=== PATIENT | female | born 1940 | race Hispanic/Latino ===

== ENCOUNTER 2018-06-08 13:24 | Inpatient (IN) | payer OTHER, MEDICARE ==
[~2018-06-08 13:24] MED LIST: ATOR20TA65 PO; CARV25TA PO; CELE100 PO; FURO-152 PO; GABA-531 PO; LEVO500T2 PO; LORA1TAB3 PO; LOSA25TA41 PO; MECL-111 PO; METF-444 PO; OMEP20CA10 PO; SERT100T12 PO
[2018-06-08] MEDS ORDERED: ONDANSETRON HCL 4 MG/2 ML VIAL ONE ×2 (13:35→22:59)
[2018-06-08 13:38] LABS: APPEARANCE,URINE Clear (CLEAR); BILIRUBIN,URINE Negative (NEGATIVE); COLOR,URINE Yellow (YELLOW); GLUCOSE, URINE (UA) Negative (NEGATIVE); KETONES,URINE Negative (NEGATIVE); LEUKOCYTE ESTERASE ,URINE Trace (NEGATIVE); NITRATE,URINE Negative (NEGATIVE); OCCULT BLOOD,URINE Negative (NEGATIVE); PROTEIN,URINE Negative (NEGATIVE); UROBILINOGEN,URINE 0.2 mg/dL (0.2-1.0)
[2018-06-08 14:05] LABS: BACTERIA,URINE Rare /HPF (None Seen); RBC,URINE 0-1 /HPF (0-1)
[2018-06-08 14:06] LABS: WBC,URINE 0-1 /HPF (0-1)
[2018-06-08 14:07] LABS: BASOPHILS % (AUTO) 0.1 % (0.0-5.0); EOSINOPHILS % (AUTO) 1.2 % (0.0-8.0); HEMATOCRIT 34.9 % (36-48); LYMPHOCYTES % (AUTO) 5.5 % (21.0-51.0); MEAN CORPUSCULAR HEMOGLOBIN 32.6 pg (27.0-33.0); MEAN CORPUSCULAR HGB CONC 34.1 g/dL (32.0-36.0); MEAN CORPUSCULAR VOLUME 95.6 fL (79-99); MONOCYTES % (AUTO) 4.2 % (3.0-13.0); PLATELET COUNT (AUTO) 172 K/uL (130-400); RED BLOOD CELL COUNT(AUTO) 3.65 MIL/uL (4.00-5.50); RED CELL DISTRIBUTION WIDTH 15.6 % (11.0-15.5); WHITE BLOOD COUNT (AUTO) 5.8 K/uL (4.8-10.8)
[2018-06-08 14:15] LABS: CREATININE 0.7 mg/dL (0.5-1.5); POTASSIUM 3.3 mmol/L (3.5-5.1)
[2018-06-08 14:19] LABS: ALBUMIN 3.8 g/dL (3.5-5.0); BILIRUBIN,TOTAL 0.9 mg/dL (0.2-1.0); TOTAL PROTEIN, SERUM 8.2 g/dL (6.0-8.3)
[2018-06-08] MEDS ORDERED: DIPHENOXYLATE HCL/ATROPINE 2.5/0.025 MG TAB PO ONE (15:29)
[2018-06-08] MEDS ORDERED: METRONIDAZOLE 500MG/100ML BAG 100 ML ONE (16:57)
[2018-06-08 18:22] LABS: OCCULT BLOOD STOOL SINGLE ONLY POSITIVE (NEGATIVE)
[2018-06-08] MEDS ORDERED: DICYCLOMINE HCL 20 MG TAB ONE (18:39)
[2018-06-08] MEDS: SODIUM CHLORIDE 0.9% 1000ML 1,000 ML IV SCH (18:40)
[2018-06-08] MEDS ORDERED: ACETAMINOPHEN 325 MG TAB PO PRN (18:45)
[2018-06-08] MEDS ORDERED: HYDRALAZINE HCL 20 MG/ML VIAL IV PRN (18:45)
[2018-06-08] MEDS ORDERED: VANCOMYCIN 1GM+NS 250ML 250 ML IV SCH (18:45)
[2018-06-08] MEDS ORDERED: METRONIDAZOLE 500 MG TABLET PO SCH (21:00)
[2018-06-08] MEDS ORDERED: ENOXAPARIN SODIUM 30 MG/0.3 ML SQ SCH (21:00)
[2018-06-08] MEDS ORDERED: POTASSIUM CHLORIDE 20 MEQ ERTAB PO ONE (22:37)
[2018-06-08] MEDS ORDERED: VANCOMYCIN 1GM+NS 250ML 250 ML IV ONE (22:38)
[2018-06-08] MEDS ORDERED: METOPROLOL TARTRATE 25 MG TAB ONE (22:39)
[2018-06-08] MEDS ORDERED: ACETAMINOPHEN EXTRA STRENGTH 500 MG TABLET ONE (23:01)
[2018-06-08 23:40] VITALS: BP 121/77
--- NOTE | 2018-06-08 23:45 | NUR ---
ADMIT PATIENT PATIENT ARRIVED TO FLOOR AT 2345 FROM ED. PATIENT AWAKE, FORGETFUL. PATIENT ON 2 L NC, TOLERATING WELL. IV FLUIDS INFUSING. ID BRACELET UPDATED, APPLIED YELLOW FALL BAND. NON-SKID SOCKS ON, BILAT SCDS. PATIENT MEDICATIONS AT BEDSIDE, RECONCILED MEDS. PATIENT BELONGINGS IN CLOSET. CALL LIGHT/PHONE WITHIN REACH. BED LOCKED, IN LOWEST POSITION. REINFORCED SAFETY INSTRUCTIONS TO CALL FOR ASSISTANCE WHEN GETTING OUT OF BED- PATIENT VERBALIZES AGREEMENT.
[2018-06-09] MEDS ORDERED: GABA-529 PO (00:41)
[2018-06-09] MEDS ORDERED: APIX5TAB PO (00:41)
[2018-06-09] MEDS ORDERED: ATOR20TA65 PO (00:41)
[2018-06-09] MEDS ORDERED: CALC-910 PO (00:41)
[2018-06-09] MEDS ORDERED: CARV12.511 PO (00:41)
[2018-06-09] MEDS ORDERED: SERT100T12 PO (00:41)
[2018-06-09] MEDS ORDERED: PANT40TA25 PO (00:41)
[2018-06-09] MEDS ORDERED: LOSA1TAB37 PO (00:41)
[2018-06-09] MEDS ORDERED: TRAM50TA4 PO (00:41)
[2018-06-09] MEDS ORDERED: SENN-107 PO (00:41)
[2018-06-09] MEDS ORDERED: TORS20TA4 PO (00:41)
[2018-06-09] MEDS ORDERED: IRON 65MG PO (00:41)
[2018-06-09] MEDS ORDERED: DEXTROSE 50%-WATER 50 ML DISP.SYRIN IV PRN (01:00)
[2018-06-09] MEDS ORDERED: POTASSIUM CHLORIDE 10% ELIXIR 20 MEQ/15 ML UDCUP PO PRN (01:00)
[2018-06-09] MEDS ORDERED: GLUCAGON 1MG KIT 1 MG ML IM PRN (01:00)
[2018-06-09] MEDS: FAMOTIDINE/PF 20 MG/2 ML VIAL IV SCH ×3 (01:18→21:55)
[2018-06-09] MEDS: LORAZEPAM 2 MG/ML 1 ML VIAL IVP PRN (01:19)
[2018-06-09] MEDS: POTASSIUM CHLORIDE 20 MEQ ERTAB PO PRN ×8 (03:17→21:56)
--- NOTE | 2018-06-09 03:17 | NUR ---
[facility] CONTINUED POTASSIUM COVERAGE PO FOR KCL=3.3. PT TOLERATED MED WELL. KEPT COMFORTABLE IN BED. CALL LIGHT WITHIN REACH. WILL MONITOR PT.
[2018-06-09 04:00] VITALS: BP 115/59
[2018-06-09] MEDS ORDERED: SENNOSIDES PO PRN (04:15)
[2018-06-09] MEDS ORDERED: DOCUSATE SODIUM PO PRN (04:15)
[2018-06-09] MEDS: SODIUM CHLORIDE 0.9% 1000ML 1,000 ML IV SCH (04:40)
--- NOTE | 2018-06-09 05:00 | NUR ---
RE-CHECK POTASSIUM LEVEL RE-CHECK = 2.8. STARTED IV AND PO POTASSIUM PER PROTOCOL. PT STILL HAVING LOOSE STOOLS. KEPT ON CONTACT ISOLATION. ENCOURAGED TO INCREASE PO INTAKE. FOR MORE CARE.
[2018-06-09] MEDS: LIDOCAINE HCL-MPF 1% 2ML VIAL IVP PRN ×2 (05:02→07:17)
[2018-06-09] MEDS: POTASSIUM CHLORIDE 20MEQ/100ML 100 ML IV PRN ×2 (05:03→07:16)
[2018-06-09] MEDS: INSULIN HUMULIN R 100 UNIT/ML 3ML SQ SCH ×4 (06:18→21:00)
[2018-06-09] MEDS ORDERED: PHARMACY COMMUNICATION MISC SCH (06:30)
--- NOTE | 2018-06-09 06:45 | NUR ---
APPRENTICE INSTRUMENT TECHNICIAN NISHA, APPRENTICE INSTRUMENT TECHNICIAN FOR HOSPITALIST, IN TO MAKE ROUNDS. UPDATED ON PT'S CONDITION. NEW ORDERS GIVEN, PLEASE REFER TO CPOE.
[2018-06-09] MEDS ORDERED: COMPOUND PO MISCELLANEOUS 1 EACH MISC MISC PRN (07:30)
[2018-06-09 08:00] VITALS: BP 119/56
[2018-06-09] MEDS ORDERED: LEVOFLOXACIN 500 MG/D5W 100 ML 100 ML IV SCH (09:00)
[2018-06-09] MEDS ORDERED: GADODIAMIDE 10 MMOL/20 ML VIAL IV ONE (10:31)
--- NOTE | 2018-06-09 11:04 | NUR ---
DCP CM met with pt discussed dc plans. Pt is semi-independent, lives at home with emelia Hawkins. Has a walker, cane, shower chair, Oxygen equipments, provider 4hrs/day w/[facility]. Denies any other equipments/services. Pt feels safe to go back home, emelia able to assist with transportation and needs. DC plan to home once stable. CM to cont to follow up. Addendum: 06/09/18 at 1105 by RENAE BALES LVN CM Amended: Links added.
[2018-06-09 11:27] LABS: % IRON SATURATION 18.1 % (22-44)
[2018-06-09] MEDS: APIXABAN 5 MG TABLET PO SCH ×2 (11:38→21:57)
[2018-06-09] MEDS: SERTRALINE HCL 50 MG TABLET PO SCH (11:39)
[2018-06-09] MEDS: CARVEDILOL 12.5 MG TABLET PO SCH ×2 (11:39→21:58)
[2018-06-09] MEDS: FERROUS SULFATE 325 MG TABLET.DR PO SCH ×2 (11:40→16:59)
[2018-06-09] MEDS: LOSARTAN/HYDROCHLOROTHIAZIDE 50-12.5MG TABLET PO SCH (11:40)
[2018-06-09] MEDS: TORSEMIDE 20 MG TAB PO SCH (11:41)
[2018-06-09] MEDS: VANCOMYCIN HCL 250MG=5ML PO SCH ×6 (11:55→17:02)
[2018-06-09 12:00] VITALS: BP 135/73
[2018-06-09] MEDS: POTASSIUM CHLORIDE 40 MEQ in SODIUM CHLORIDE 0.9% 1000ML 1,000 ML IV SCH ×3 (12:01→23:57)
[2018-06-09] MEDS ORDERED: METRONIDAZOLE 500MG/100ML BAG 100 ML IV SCH (14:00)
[2018-06-09] MEDS ORDERED: LOPERAMIDE HCL 1 MG/5 ML UNIT DOSE CUP PO SCH (15:40)
[2018-06-09 16:00] VITALS: BP 129/78
[2018-06-09 20:00] VITALS: BP 132/70
[2018-06-09] MEDS: MAGNESIUM 2GM PREMIX 50ML 50 ML IV PRN (21:55)
[2018-06-09] MEDS: ATORVASTATIN CALCIUM 20 MG TABLET PO SCH (21:56)
[2018-06-09] MEDS: GABAPENTIN 100 MG CAPSULE PO SCH (21:57)
[2018-06-09 23:44] VITALS: BP 128/68
[2018-06-10] MEDS: VANCOMYCIN HCL 250MG=5ML PO SCH ×6 (00:01→11:48)
[2018-06-10 04:00] VITALS: BP 133/75
[2018-06-10 04:42] LABS: HEMATOCRIT 32.4 % (36-48); MEAN CORPUSCULAR HEMOGLOBIN 32.7 pg (27.0-33.0); MEAN CORPUSCULAR HGB CONC 33.9 g/dL (32.0-36.0); MEAN CORPUSCULAR VOLUME 96.4 fL (79-99); NUCLEATED RED BLOOD CELLS 0.2 % (0.0-0.19); PLATELET COUNT (AUTO) 147 K/uL (130-400); RED BLOOD CELL COUNT(AUTO) 3.36 MIL/uL (4.00-5.50); RED CELL DISTRIBUTION WIDTH 16.4 % (11.0-15.5); WHITE BLOOD COUNT (AUTO) 3.3 K/uL (4.8-10.8)
[2018-06-10 04:55] LABS: CREATININE 0.7 mg/dL (0.5-1.5); POTASSIUM 4.4 mmol/L (3.5-5.1)
[2018-06-10] MEDS: INSULIN HUMULIN R 100 UNIT/ML 3ML SQ SCH ×4 (07:01→21:00)
[2018-06-10 08:00] VITALS: BP 128/69
[2018-06-10] MEDS ORDERED: LOPERAMIDE HCL 2 MG CAP PO SCH ×2 (08:00→18:05)
[2018-06-10] MEDS: ONDANSETRON HCL 4 MG/2 ML VIAL IV PRN (08:21)
[2018-06-10] MEDS: CARVEDILOL 12.5 MG TABLET PO SCH ×2 (09:00→21:21)
[2018-06-10] MEDS: DICYCLOMINE HCL 20 MG TAB PO PRN (11:25)
[2018-06-10] MEDS: TRAMADOL HCL 50 MG TABLET PO PRN (11:25)
[2018-06-10] MEDS: SERTRALINE HCL 50 MG TABLET PO SCH (11:27)
[2018-06-10] MEDS: LOSARTAN/HYDROCHLOROTHIAZIDE 50-12.5MG TABLET PO SCH (11:27)
[2018-06-10] MEDS: LACTOBACILLUS RHAMNOSUS GG 1 EACH CAP.SPRINK PO SCH ×3 (11:27→17:05)
[2018-06-10] MEDS: FERROUS SULFATE 325 MG TABLET.DR PO SCH ×2 (11:28→17:05)
[2018-06-10] MEDS: APIXABAN 5 MG TABLET PO SCH ×2 (11:28→21:14)
[2018-06-10] MEDS: FAMOTIDINE/PF 20 MG/2 ML VIAL IV SCH ×2 (11:29→21:14)
[2018-06-10] MEDS: TORSEMIDE 20 MG TAB PO SCH (11:29)
[2018-06-10 12:00] VITALS: BP 143/90
--- NOTE | 2018-06-10 15:21 | NUR ---
CM Note: [facility] pending ins auth and acceptance CM met with pt discussed MD recommendations, agreeable to go to [facility], HENRIQUE signed. Faxed order, clinicals, pasrr to [facility]. Spoke to Khushboo, will come eval pt. Pt pending ins auth and acceptance. Primary nurse aware. CM to cont to follow up.
[2018-06-10 16:00] VITALS: BP 147/90
--- NOTE | 2018-06-10 16:00 | NUR ---
DR. FRANCOIS AWARE OF STOOL CX POSITIVE ONLY FOR ROTAVIRUS ORDERS ENTERED.
[2018-06-10] MEDS ORDERED: LEVOFLOXACIN 500 MG TABLET ONE (16:47)
[2018-06-10] MEDS ORDERED: LOPERAMIDE HCL 2 MG CAP PO ONE (16:47)
[2018-06-10] MEDS: SODIUM CHLORIDE 0.9% 1000ML 1,000 ML IV SCH (17:07)
[2018-06-10] MEDS ORDERED: LEVOFLOXACIN 750 MG TABLET PO SCH (18:05)
[2018-06-10 20:00] VITALS: BP 140/59
[2018-06-10] MEDS: ATORVASTATIN CALCIUM 20 MG TABLET PO SCH (21:14)
[2018-06-10] MEDS: GABAPENTIN 100 MG CAPSULE PO SCH (21:14)
[2018-06-10 21:22] VITALS: BP 130/59
[2018-06-11] VITALS: BP 132/63
[2018-06-11 04:00] VITALS: BP 123/66
[2018-06-11] MEDS: SODIUM CHLORIDE 0.9% 1000ML 1,000 ML IV SCH ×2 (04:15→18:32)
[2018-06-11 05:45] LABS: CREATININE 0.7 mg/dL (0.5-1.5); POTASSIUM 3.2 mmol/L (3.5-5.1)
[2018-06-11 05:49] LABS: HEMATOCRIT 33.5 % (36-48); MEAN CORPUSCULAR HEMOGLOBIN 31.4 pg (27.0-33.0); MEAN CORPUSCULAR VOLUME 95.3 fL (79-99); PLATELET COUNT (AUTO) 165 K/uL (130-400); RED BLOOD CELL COUNT(AUTO) 3.52 MIL/uL (4.00-5.50); RED CELL DISTRIBUTION WIDTH 16.2 % (11.0-15.5); WHITE BLOOD COUNT (AUTO) 4.7 K/uL (4.8-10.8)
[2018-06-11] MEDS: INSULIN HUMULIN R 100 UNIT/ML 3ML SQ SCH ×4 (06:58→21:00)
[2018-06-11 07:30] VITALS: BP 149/94
[2018-06-11] MEDS: LACTOBACILLUS RHAMNOSUS GG 1 EACH CAP.SPRINK PO SCH ×3 (09:00→19:56)
[2018-06-11] MEDS: SERTRALINE HCL 50 MG TABLET PO SCH (09:01)
[2018-06-11] MEDS: APIXABAN 5 MG TABLET PO SCH ×2 (09:02→22:29)
[2018-06-11] MEDS: FERROUS SULFATE 325 MG TABLET.DR PO SCH ×2 (09:02→19:56)
[2018-06-11] MEDS: TORSEMIDE 20 MG TAB PO SCH (09:02)
[2018-06-11] MEDS: CARVEDILOL 12.5 MG TABLET PO SCH ×2 (09:02→22:29)
[2018-06-11] MEDS: LOSARTAN/HYDROCHLOROTHIAZIDE 50-12.5MG TABLET PO SCH (09:03)
[2018-06-11] MEDS: ONDANSETRON HCL 4 MG/2 ML VIAL IV PRN (09:03)
[2018-06-11] MEDS: FAMOTIDINE/PF 20 MG/2 ML VIAL IV SCH ×2 (09:03→22:28)
[2018-06-11] MEDS: DICYCLOMINE HCL 20 MG TAB PO PRN (09:08)
[2018-06-11 11:00] VITALS: BP 111/54
--- NOTE | 2018-06-11 11:01 | NUR ---
activity: AMB IN HALLWAY WITH PT PERSONNEL "[place]".
[2018-06-11] MEDS: POTASSIUM CHLORIDE 20 MEQ ERTAB PO PRN ×3 (11:12→22:31)
[2018-06-11] MEDS: LORAZEPAM 2 MG/ML 1 ML VIAL IVP PRN (11:13)
--- NOTE | 2018-06-11 11:13 | NUR ---
anxiety: c/o anxiety and req her medication. adm ativan 0.5 mg sivp over 3 min and olga lidia well. Understands possible side effects and to call for assisstance when getting up. Call orellana at her side.
--- NOTE | 2018-06-11 11:19 | NUR ---
activity: sitting up in chair, talkative.
--- NOTE | 2018-06-11 14:00 | NUR ---
dr. guzman aware of pt having more than 8 loose stools.
[2018-06-11 16:00] VITALS: BP 106/56
--- NOTE | 2018-06-11 17:00 | NUR ---
cm note - Per Khushboo pt accepted at [facility]- updated primarynurse Elbert, states pt still with some diarrhea. Possible dc order for tomorrow. Passer done.
--- NOTE | 2018-06-11 18:34 | NUR ---
nutrition: eating a banana, in good spirits
[2018-06-11 20:17] VITALS: BP 138/66
[2018-06-11] MEDS ORDERED: DIPHENOXYLATE HCL/ATROPINE 2.5/0.025 MG TAB PO ONE ×2 (20:45→22:24)
[2018-06-11] MEDS ORDERED: LOPERAMIDE HCL 2 MG CAP PO SCH (20:45)
[2018-06-11] MEDS ORDERED: LOPERAMIDE HCL 2 MG CAP PO ONE (22:24)
[2018-06-11] MEDS: ATORVASTATIN CALCIUM 20 MG TABLET PO SCH (22:30)
[2018-06-11] MEDS: GABAPENTIN 100 MG CAPSULE PO SCH (22:30)
[2018-06-12 00:22] VITALS: BP 136/63
[2018-06-12 03:55] VITALS: BP 116/48
--- NOTE | 2018-06-12 04:10 | NUR ---
TELEMETRY CALLED PT. was having 10-15 secs of Afib 160'-180's. Pt. was sleeping calmly. No signs of distress. VS are WNL. Kept monitored.
[2018-06-12 05:16] LABS: BASOPHILS % (AUTO) 0.2 % (0.0-5.0); EOSINOPHILS % (AUTO) 0.4 % (0.0-8.0); HEMATOCRIT 34.1 % (36-48); LYMPHOCYTES % (AUTO) 31.4 % (21.0-51.0); MEAN CORPUSCULAR HEMOGLOBIN 32.3 pg (27.0-33.0); MEAN CORPUSCULAR HGB CONC 33.9 g/dL (32.0-36.0); MEAN CORPUSCULAR VOLUME 95.4 fL (79-99); MONOCYTES % (AUTO) 15.3 % (3.0-13.0); NEUTROPHILS % (AUTO) 52.7 % (40.0-77.0); NUCLEATED RED BLOOD CELLS 0.1 % (0.0-0.19); PLATELET COUNT (AUTO) 168 K/uL (130-400); RED BLOOD CELL COUNT(AUTO) 3.58 MIL/uL (4.00-5.50); RED CELL DISTRIBUTION WIDTH 15.7 % (11.0-15.5); WHITE BLOOD COUNT (AUTO) 4.3 K/uL (4.8-10.8)
[2018-06-12 05:45] LABS: CREATININE 0.7 mg/dL (0.5-1.5); POTASSIUM 3.4 mmol/L (3.5-5.1)
[2018-06-12] MEDS: INSULIN HUMULIN R 100 UNIT/ML 3ML SQ SCH ×4 (06:42→21:00)
[2018-06-12 07:30] VITALS: BP 152/67
[2018-06-12] MEDS: APIXABAN 5 MG TABLET PO SCH ×2 (09:12→19:51)
[2018-06-12] MEDS: CARVEDILOL 12.5 MG TABLET PO SCH ×2 (09:12→19:51)
[2018-06-12] MEDS: LACTOBACILLUS RHAMNOSUS GG 1 EACH CAP.SPRINK PO SCH ×3 (09:12→17:12)
[2018-06-12] MEDS: LOSARTAN/HYDROCHLOROTHIAZIDE 50-12.5MG TABLET PO SCH (09:12)
[2018-06-12] MEDS: TORSEMIDE 20 MG TAB PO SCH (09:12)
[2018-06-12] MEDS: FAMOTIDINE/PF 20 MG/2 ML VIAL IV SCH ×2 (09:13→19:54)
[2018-06-12] MEDS: FERROUS SULFATE 325 MG TABLET.DR PO SCH ×2 (09:13→17:12)
[2018-06-12] MEDS: POTASSIUM CHLORIDE 20 MEQ ERTAB PO PRN ×2 (09:13→12:36)
[2018-06-12] MEDS: SERTRALINE HCL 50 MG TABLET PO SCH (09:13)
[2018-06-12 11:00] VITALS: BP 128/73
[2018-06-12 16:00] VITALS: BP 138/74
[2018-06-12] MEDS: ACETAMINOPHEN 325 MG TAB PO PRN (18:27)
[2018-06-12] MEDS: ATORVASTATIN CALCIUM 20 MG TABLET PO SCH (19:52)
[2018-06-12] MEDS: GABAPENTIN 100 MG CAPSULE PO SCH (19:52)
[2018-06-12 20:00] VITALS: BP 125/59
[2018-06-12] MEDS: DICYCLOMINE HCL 20 MG TAB PO PRN (20:06)
[2018-06-12] MEDS: SODIUM CHLORIDE 0.9% 1000ML 1,000 ML IV SCH (20:15)
[2018-06-13] VITALS (7 sets, daily range): BP systolic 114–150; BP diastolic 45–86
--- NOTE | 2018-06-13 02:14 | NUR ---
Telemetry Received call from telemetry that patient had spurt of a fib heart 190s for 15-20 seconds, pending callback from [employer] hospitalist [employer]
[2018-06-13] MEDS: INSULIN HUMULIN R 100 UNIT/ML 3ML SQ SCH ×4 (05:36→20:30)
[2018-06-13 06:26] LABS: BASOPHILS % (AUTO) 0.4 % (0.0-5.0); EOSINOPHILS % (AUTO) 0.9 % (0.0-8.0); HEMATOCRIT 34.7 % (36-48); LYMPHOCYTES % (AUTO) 35.2 % (21.0-51.0); MEAN CORPUSCULAR HGB CONC 33.7 g/dL (32.0-36.0); MEAN CORPUSCULAR VOLUME 94.8 fL (79-99); MONOCYTES % (AUTO) 13.6 % (3.0-13.0); NEUTROPHILS % (AUTO) 49.9 % (40.0-77.0); NUCLEATED RED BLOOD CELLS 0.1 % (0.0-0.19); PLATELET COUNT (AUTO) 196 K/uL (130-400); RED BLOOD CELL COUNT(AUTO) 3.66 MIL/uL (4.00-5.50); RED CELL DISTRIBUTION WIDTH 15.6 % (11.0-15.5); WHITE BLOOD COUNT (AUTO) 4.6 K/uL (4.8-10.8)
[2018-06-13 06:35] LABS: BILIRUBIN,TOTAL 0.5 mg/dL (0.2-1.0); CREATININE 0.7 mg/dL (0.5-1.5); MAGNESIUM 1.5 mg/dL (1.80-2.40); POTASSIUM 3.3 mmol/L (3.5-5.1); TOTAL PROTEIN, SERUM 6.8 g/dL (6.0-8.3)
[2018-06-13] MEDS: LACTOBACILLUS RHAMNOSUS GG 1 EACH CAP.SPRINK PO SCH ×3 (08:30→16:37)
[2018-06-13] MEDS: SERTRALINE HCL 50 MG TABLET PO SCH (08:31)
[2018-06-13] MEDS: POTASSIUM CHLORIDE 20 MEQ ERTAB PO PRN ×3 (08:31→16:42)
[2018-06-13] MEDS: APIXABAN 5 MG TABLET PO SCH ×2 (08:31→20:01)
[2018-06-13] MEDS: FERROUS SULFATE 325 MG TABLET.DR PO SCH ×2 (08:31→16:37)
[2018-06-13] MEDS: LOSARTAN/HYDROCHLOROTHIAZIDE 50-12.5MG TABLET PO SCH (08:31)
[2018-06-13] MEDS: TORSEMIDE 20 MG TAB PO SCH (08:31)
[2018-06-13] MEDS: FAMOTIDINE/PF 20 MG/2 ML VIAL IV SCH ×2 (08:32→20:01)
[2018-06-13] MEDS: CARVEDILOL 12.5 MG TABLET PO SCH ×2 (08:32→20:02)
[2018-06-13] MEDS: TRAMADOL HCL 50 MG TABLET PO PRN (09:43)
[2018-06-13] MEDS ORDERED: MAGNESIUM 2GM PREMIX 50ML 50 ML IV PRN (11:45)
[2018-06-13] MEDS: MAGNESIUM 2GM PREMIX 50ML 50 ML IV PRN (11:55)
[2018-06-13] MEDS: SODIUM CHLORIDE 0.9% 1000ML 1,000 ML IV SCH (16:39)
[2018-06-13] MEDS: ACETAMINOPHEN 325 MG TAB PO PRN (16:43)
[2018-06-13] MEDS: ATORVASTATIN CALCIUM 20 MG TABLET PO SCH (20:01)
[2018-06-13] MEDS: GABAPENTIN 100 MG CAPSULE PO SCH (20:02)
[2018-06-14 03:43] VITALS: BP 121/61
[2018-06-14] MEDS: INSULIN HUMULIN R 100 UNIT/ML 3ML SQ SCH ×4 (05:42→20:15)
[2018-06-14 06:16] LABS: MAGNESIUM 1.9 mg/dL (1.80-2.40); POTASSIUM 3.6 mmol/L (3.5-5.1)
[2018-06-14 08:00] VITALS: BP 146/67
[2018-06-14] MEDS: APIXABAN 5 MG TABLET PO SCH ×2 (09:06→20:14)
[2018-06-14] MEDS: FERROUS SULFATE 325 MG TABLET.DR PO SCH ×2 (09:06→17:05)
[2018-06-14] MEDS: SERTRALINE HCL 50 MG TABLET PO SCH (09:07)
[2018-06-14] MEDS: TORSEMIDE 20 MG TAB PO SCH (09:07)
[2018-06-14] MEDS: LACTOBACILLUS RHAMNOSUS GG 1 EACH CAP.SPRINK PO SCH ×3 (09:07→17:05)
[2018-06-14] MEDS: CARVEDILOL 12.5 MG TABLET PO SCH ×2 (09:07→20:14)
[2018-06-14] MEDS: LOSARTAN/HYDROCHLOROTHIAZIDE 50-12.5MG TABLET PO SCH (09:07)
[2018-06-14] MEDS: FAMOTIDINE/PF 20 MG/2 ML VIAL IV SCH ×2 (09:07→20:13)
--- NOTE | 2018-06-14 10:32 | NUR ---
[facility] paged this morning to follow up with pending consult for new onset A-MD mando pending to see pt. Dr. Pillai is said to be the one call to see pt. Nursing will continue to follow up.
[2018-06-14] MEDS: MAGNESIUM 2GM PREMIX 50ML 50 ML IV PRN (11:49)
[2018-06-14] MEDS: SODIUM CHLORIDE 0.9% 1000ML 1,000 ML IV SCH ×2 (11:49→20:24)
[2018-06-14 12:00] VITALS: BP 114/63
--- NOTE | 2018-06-14 14:08 | NUR ---
CM Note: [facility] auth good up to today. Spoke to Khushboo covering [facility], pt ins auth goof up to today. Will need reauth for tomorrow. EMS arranged and faxed, primary nurse to call [facility] once pt ready to DC. Primary nurse aware. CM to cont to follow up.
[2018-06-14] MEDS: ACETAMINOPHEN 325 MG TAB PO PRN ×2 (15:17→20:15)
[2018-06-14 16:00] VITALS: BP 103/77
[2018-06-14 20:06] VITALS: BP 155/78
[2018-06-14] MEDS: POTASSIUM CHLORIDE 20 MEQ ERTAB PO PRN (20:13)
[2018-06-14] MEDS: GABAPENTIN 100 MG CAPSULE PO SCH (20:14)
[2018-06-14] MEDS: ATORVASTATIN CALCIUM 20 MG TABLET PO SCH (20:14)
--- NOTE | 2018-06-14 20:15 | NUR ---
PAIN PT WAS ASSISTED BY PCP TO THE BSC AND TRANSVERSE ABDOMINAL MUSCLE NURSE ASSISTED PT BACK TO BED. PT CLAIMS OF HAVING ABDOMINAL APINS AND WANTS TYLENOL. FURTHER CLAIMS OF HAVING A LOT OF ANXIETY. DUE MEDS ADMINISTERED, TYLENOL GIVEN FOR PAINS AND ATIVAN GIVEN FOR ANXIETY. PLACED COMFORTABLY IN BED, O2 AT 2LPM VIA NC RE-APPLIED. SCD'S RE-APPLIED TO BLE. WILL RE-ASSESS PT.
[2018-06-14] MEDS: LORAZEPAM 2 MG/ML 1 ML VIAL IVP PRN (20:25)
--- NOTE | 2018-06-14 21:30 | NUR ---
ROUNDS PT ALREADY FAIRLY ASLEEP WITH RESPIRATIONS EVEN AND UNLABORED. NO NOTED DISTRESS. KEPT UNDISTURBED FOR NOW.
[2018-06-15 00:10] VITALS: BP 149/59
--- NOTE | 2018-06-15 02:00 | NUR ---
ROUNDS PT FAIRLY ASLEEP WITH RESPIRATIONS EVEN AND UNLABORED. NO NOTED DISTRESS. CALL LIGHT WITHIN REACH. WILL MONITOR PT.
[2018-06-15 04:04] VITALS: BP 177/78
[2018-06-15 05:00] LABS: BASOPHILS % (AUTO) 0.4 % (0.0-5.0); EOSINOPHILS % (AUTO) 1.4 % (0.0-8.0); HEMATOCRIT 34.9 % (36-48); LYMPHOCYTES % (AUTO) 42.6 % (21.0-51.0); MEAN CORPUSCULAR HEMOGLOBIN 31.3 pg (27.0-33.0); MEAN CORPUSCULAR HGB CONC 33.3 g/dL (32.0-36.0); MONOCYTES % (AUTO) 13.9 % (3.0-13.0); NEUTROPHILS % (AUTO) 41.7 % (40.0-77.0); PLATELET COUNT (AUTO) 229 K/uL (130-400); RED BLOOD CELL COUNT(AUTO) 3.71 MIL/uL (4.00-5.50); RED CELL DISTRIBUTION WIDTH 15.7 % (11.0-15.5); WHITE BLOOD COUNT (AUTO) 5.1 K/uL (4.8-10.8)
[2018-06-15 05:06] LABS: CREATININE 0.8 mg/dL (0.5-1.5); MAGNESIUM 1.8 mg/dL (1.80-2.40); POTASSIUM 3.1 mmol/L (3.5-5.1)
[2018-06-15] MEDS: POTASSIUM CHLORIDE 20 MEQ ERTAB PO PRN ×2 (05:56→09:29)
[2018-06-15] MEDS: MAGNESIUM 2GM PREMIX 50ML 50 ML IV PRN (05:56)
[2018-06-15] MEDS: INSULIN HUMULIN R 100 UNIT/ML 3ML SQ SCH ×2 (05:57→11:30)
--- NOTE | 2018-06-15 06:00 | NUR ---
[facility]S AWAKENED PT FOR COVERAGE OF POTASSIUM PO AND MAGNESIUM IV KCL=3.1 AND MG=1.8. PT ASSISTED TO THE BSC THEN BACK IN BED, KEPT COMFORTABLE. CALL LIGHT WITHIN REACH. FOR MORE CARE.
[2018-06-15 08:00] VITALS: BP 147/70
[2018-06-15] MEDS: LOSARTAN/HYDROCHLOROTHIAZIDE 50-12.5MG TABLET PO SCH (09:28)
[2018-06-15] MEDS: APIXABAN 5 MG TABLET PO SCH (09:28)
[2018-06-15] MEDS: SERTRALINE HCL 50 MG TABLET PO SCH (09:28)
[2018-06-15] MEDS: LACTOBACILLUS RHAMNOSUS GG 1 EACH CAP.SPRINK PO SCH ×2 (09:28→12:52)
[2018-06-15] MEDS: FAMOTIDINE/PF 20 MG/2 ML VIAL IV SCH (09:29)
[2018-06-15] MEDS: CARVEDILOL 12.5 MG TABLET PO SCH (09:29)
[2018-06-15] MEDS: FERROUS SULFATE 325 MG TABLET.DR PO SCH (09:29)
[2018-06-15] MEDS: TORSEMIDE 20 MG TAB PO SCH (09:29)
--- NOTE | 2018-06-15 09:30 | NUR ---
Change In Discharge Planning Pt was apparently planing d/c to [facility] for rehab but later changed her mind to d/c home. CM made aware, primary care physician notified, pt d/c plan is now to home. Pt stated she has 8 hours of provider services at home and she will prefer to go home. Pt wishes respected and d/c plan is now for home.
[2018-06-15] MEDS: SODIUM CHLORIDE 0.9% 1000ML 1,000 ML IV SCH (09:32)
--- NOTE | 2018-06-15 11:25 | NUR ---
CM Note: Cancelled [facility], pt wants to dc home CM met with pt, pt requestednto cancel placement, prefers to go back home, [facility] able to assist and has provider at home. Called Khushboo reddy/GILDA, informed of cancellation. Primary nurse aware. Pt safe to dc to home via private car once MD clear. CM to cont to follow up.
[2018-06-15 12:00] VITALS: BP 135/62
--- NOTE | 2018-06-15 14:52 | NUR ---
Pt d/c home safely, transport provided by daughter in-law, Patsy Hawkins. IV taken out safely, no acute distress noted, pt accompanied by family member home.
== END 2018-06-15 14:52 | disposition home or self-care (01) | DRG 373 ==
LOC: EDH 13:24 → EDHIP 17:27 → OBSVTOIN 17:27 → 3CH 21:18
PROVIDERS: ADMIT Internal Medicine; ATTEND Internal Medicine
DX: A04.72 Enterocolitis due to Clostridium difficile, not specified as recurrent (principal); A08.0 Rotaviral enteritis; E86.0 Dehydration; E87.6 Hypokalemia; I48.0 Paroxysmal atrial fibrillation; E66.9 Obesity, unspecified; E11.9 Type 2 diabetes mellitus without complications; K21.9 Gastro-esophageal reflux disease without esophagitis; E78.5 Hyperlipidemia, unspecified; I10 Essential (primary) hypertension; G89.29 Other chronic pain; F41.9 Anxiety disorder, unspecified; F32.9 Major depressive disorder, single episode, unspecified; Z96.653 Presence of artificial knee joint, bilateral; R32 Unspecified urinary incontinence
CPT/HCPCS: 36415; 74183; 76705; 80048; 80053; 81001; 82270; 82948; 83540; 83550; 83605; 83690; 83735; 84132; 85025; 85027; 86140; 87046; 87177; 87324; 87507; 93005; 97039; A4218; A9579; G0378; J1650; J2060; J2405; J3370; J3475; J3480; J3490; J7030